=== PATIENT | female | born 1950 | race Asian ===

== ENCOUNTER → 2017-07-26 | Outpatient (CLI) | payer OTHER, BC ==
[~2017-07-26] VITALS: Ht 149.9 cm; Wt 51.3 kg
[~2017-07-26] MED LIST: ENDOCET 5-3251 EACH; GABAPENTIN100 MG; JANUVIA25 M1 PO; MULTIPLE VITAM1 EACH PO; PRAVACHOL10 MG PO; SIMETHICONE80 MG PO; VITAMIN D1000 INTUN PO; ZOFRAN ODT4 MG PO
[2017-07-26 09:59] LABS: POINT-OF-CARE METER ID UU14107333
== END | disposition home or self-care (01) ==
LOC: AMB 09:05
PROVIDERS: Internal Medicine Gastroenterology
DX: K29.70 Gastritis, unspecified, without bleeding (principal); B96.81 Helicobacter pylori [H. pylori] as the cause of diseases classified elsewhere; R63.4 Abnormal weight loss; R68.81 Early satiety; K21.9 Gastro-esophageal reflux disease without esophagitis; M81.8 Other osteoporosis without current pathological fracture; Z90.49 Acquired absence of other specified parts of digestive tract; Z80.0 Family history of malignant neoplasm of digestive organs; Z79.84 Long term (current) use of oral hypoglycemic drugs; Z88.0 Allergy status to penicillin; Z88.8 Allergy status to other drugs, medicaments and biological substances
CPT/HCPCS: 82948; 88305; 93005; C1726; J2250

== ENCOUNTER 2017-11-02 10:03 | Emergency (ER) | payer OTHER, BC ==
[~2017-11-02] VITALS: Ht 152.4 cm
[2017-11-02 10:31] VITALS: BP 140/78
== END 2017-11-02 11:10 | disposition left against medical advice (07) ==
LOC: EME 10:03
DX: M79.602 Pain in left arm (principal); Z53.21 Procedure and treatment not carried out due to patient leaving prior to being seen by health care provider

== ENCOUNTER 2017-11-11 14:59 | Emergency (ER) | payer OTHER, BC ==
[~2017-11-11] VITALS: Ht 152.4 cm; Wt 55.2 kg
[2017-11-11 18:38] VITALS: BP 122/75
== END 2017-11-11 18:41 | disposition home or self-care (01) ==
LOC: EME 14:59
PROC: 2W3DX1Z Immobilization of Left Lower Arm using Splint (ICD-10-PCS; principal; 2017-11-11)
DX: S52.202A Unspecified fracture of shaft of left ulna, initial encounter for closed fracture (principal); W22.8XXA Striking against or struck by other objects, initial encounter; E11.9 Type 2 diabetes mellitus without complications; E78.00 Pure hypercholesterolemia, unspecified; Z88.0 Allergy status to penicillin; Z88.5 Allergy status to narcotic agent; Z88.6 Allergy status to analgesic agent; J30.2 Other seasonal allergic rhinitis
CPT/HCPCS: 73090; 99281; 99283